=== PATIENT | female | born 1965 | race Caucasian/White ===

== ENCOUNTER → 2017-07-06 | Outpatient (CLI) | payer BC | END | disposition home or self-care (01) | LOC: YCFC.O 07-05 15:04 | PROVIDERS: ATTEND Nurse Practitioner Family | DX: I10 Essential (primary) hypertension (principal); Z13.220 Encounter for screening for lipoid disorders ==

== ENCOUNTER 2017-09-27 14:52 | Emergency (ER) | payer BC ==
--- NOTE | 2017-09-27 15:50 | ED.PDOC ---
History of Present Illness - General Chief Complaint: Lower Extremity Injury Stated Complaint: right foot/toe pain Time Seen by Provider: 09/27/17 15:16 Source: patient Exam Limitations: no limitations - History of Present Illness Initial Comments: R 3RD (MIDDLE) TOE PAIN X 4 D. 6 D AGO, PT DROPPED TV ONTO R FOOT. NO SEVERE PAIN AT THE TIME. PAIN ENSUED 2 D LATER. WORSE TODAY. TODAY, SHE IS UNABLE TO BEAR WT ON IT D/T PAIN. H/O GOUT BL ANKLES AND R GREAT TOE. Pain - Lower Extremity: severe: Right Foot Method of Injury: direct blow Improving Factors: immobilization Worsening Factors: movement Allergies/Adverse Reactions: Allergies Cephalexin [From Keflex] Allergy (Verified 09/27/17 15:23) Erythromycin [From E-Mycin] Allergy (Verified 09/27/17 15:23) Latex Allergy (Verified 09/27/17 15:23) Paroxetine [From Paxil] Allergy (Verified 09/27/17 15:23) Penicillin G Allergy (Verified 09/27/17 15:23) Home Medications: Ambulatory Orders Methylprednisolone [Medrol Dose Sai] 4 mg PO DAILY #1 tab 09/27/17 Review of Systems - Review of Systems Constitutional: States: no symptoms reported EENTM: States: no symptoms reported Respiratory: States: no symptoms reported Cardiology: States: no symptoms reported Gastrointestinal/Abdominal: States: no symptoms reported Genitourinary: States: no symptoms reported Musculoskeletal: States: joint pain. Denies: muscle pain Skin: Denies: change in color, lesions, lumps Neurological: Denies: numbness, paresthesia, weakness Endocrine: States: no symptoms reported Hematologic/Lymphatic: States: no symptoms reported All other Systems: Reviewed and Negative Past Medical History (General) - Patient Medical History Hx Seizures: No Hx Stroke: Yes - states has had a mini stroke in past Hx Dementia: No Hx Asthma: No Hx of COPD: No Hx Cardiac Disorders: No Hx Congestive Heart Failure: No Hx Pacemaker: No Hx Hypertension: No Hx Thyroid Disease: No Hx Diabetes: No Hx Gastroesophageal Reflux: Yes Hx Renal Disease: No Hx Cancer: No Hx of HIV: No Hx Hepatitis C: No Hx MRSA: No Surgical History: appendectomy, tonsillectomy - Vaccination History Hx Tetanus, Diphtheria Vaccination: No Hx Influenza Vaccination: No Hx Pneumococcal Vaccination: No Immunizations Up to Date: No - Social History Hx Tobacco Use: Yes Hx Chewing Tobacco Use: No Hx Alcohol Use: No Hx Substance Use: No Hx Substance Use Treatment: No Hx Depression: No Feels Threatened In Home Enviroment: No Feels Threatened In a Relationship: No Hx Physical Abuse: No Hx Emotional Abuse: No Hx Suspected Abuse: No - Activities of Daily Living Hospice Agency (if applicable):: None - Female History Patient is a Female of Child Bearing Age (10 -59 yrs old): Yes Patient : No Family Medical History - Family History Mother Family History: Unknown Physical Exam - Physical Exam General Appearance: Alert, Well Groomed, Other Eyes, Ears, Nose, Throat: PERRL/EOMI, normal ENT inspection Neck: full range of motion, supple Cardiovascular/Respiratory: regular rate, rhythm, no M/R/G, no respiratory distress Gastrointestinal/Abdominal: non-tender, no organomegaly Back: normal inspection Thigh/Hip: normal inspection, no evidence of injury Leg: normal inspection, no evidence of injury Knee: normal inspection, no evidence of injury Ankle: normal inspection, non-tender, no evidence of injury, normal ROM Foot: other - R MIDDLE (3RD) TOE EXQUISITELY TTP. PAINFUL MVMT. FOOT NTTP, HOWEVER PLANTAR SURFACE OF MTP JOINT AND PHALANX TTP. NO ERYTHEMA, NOT WARM/HOT , TOE NON-EDEMATOUS. Neuro/Tendon: normal sensation, normal motor functions, responds to pain, no evidence tendon injury Mental Status: alert, oriented x 3 Skin: normal color, warm/dry Progress - Results/Orders Results/Orders: NOTE: UR CX WAS ORDERED IN ERROR AND CANCELED. PT HAS TRAMADOL RX FROM HER REG DR WITH HER FOR VARIOUS ARTHRITIS PAIN. SHE DECLINES THE OFFER FOR ANY ADDITIONAL PAIN MED. XRAY NEG FOR TOE FRX. PAIN IS TOO SEVERE FOR SPRAIN/STRAIN, SO I AM TREATING LIKELY GOUT FLARE W/ HER HX OF GOUT - STEROIDS. F/U W/ PCP. - EKG/XRAY/CT CT Ordered: No CT Interpretation Call Back: No Departure - Departure Clinical Impression: Toe pain, right, Gout attack Disposition: Discharge to Home or Self Care Condition: Fair Departure Forms: ED Discharge - Pt. Copy, Patient Portal Self Enrollment Instructions: DI for Gout Diet: resume usual diet Activity: increase activity as tolerated Referrals: Donna Olson NP [Primary Care Provider] - 1-2 Weeks Prescriptions: Methylprednisolone [Medrol Dose Sai] 4 mg PO DAILY #1 tab Home Medications: Ambulatory Orders Methylprednisolone [Medrol Dose Sai] 4 mg PO DAILY #1 tab 09/27/17 Additional Instructions: Try to increase your intake of cherries, as evidence shows it helps to decrease gout attacks. Please see your regular doctor if it is not improving by 6 days, or return to the ER sooner if anything changes.
--- NOTE | 2017-09-27 16:21 | RAD ---
EXAM DESCRIPTION: Toes,Right CLINICAL HISTORY: 52 years, Female, R MIDDLE TOE PAIN; UNABLE TO BEAR WEIGHT. COMPARISON: None. FINDINGS: Toes of the right foot appear unremarkable. Joint space is unremarkable. IMPRESSION: Unremarkable toes of the right Electronically signed by: Ovi Beard MD 09/27/2017 4:19 PM [facility]
[2017-09-27] MEDS ORDERED: methylPREDNISolone ACETATE 80 MG/ML VIAL IM ONE (17:10)
[2017-09-27 17:35] VITALS: BP 145/94; TEMP 97.4; O2SAT 97
== END 2017-09-27 17:42 | disposition home or self-care (01) ==
LOC: ER 14:52
DX: M10.9 Gout, unspecified (principal); Z87.891 Personal history of nicotine dependence; Z86.73 Personal history of transient ischemic attack (TIA), and cerebral infarction without residual deficits; Z88.0 Allergy status to penicillin; Z91.040 Latex allergy status
CPT/HCPCS: 73660; J1030

== ENCOUNTER → 2017-10-02 | Outpatient (CLI) | payer BC ==
--- NOTE | 2017-10-03 14:02 | RAD ---
Two-view right foot. Indication: PN IN RIGHT FOOT Comparison: None. Impression: No acute fracture or malalignment. Prominent calcaneal spurring Achilles insertion plantar fascia origin. Tiny os navicular bone. No advanced osteoarthritis. Electronically signed by: Ollie Sewell MD 10/03/2017 2:01 PM [facility]
== END ==
LOC: YCFC.O 13:04
PROVIDERS: ATTEND Nurse Practitioner Family
DX: M79.671 Pain in right foot (principal); M77.31 Calcaneal spur, right foot

== ENCOUNTER → 2018-04-05 | Outpatient (CLI) | payer BC ==
--- NOTE | 2018-04-05 12:25 | RAD ---
EXAM DESCRIPTION: Foot,Left 3 Views CLINICAL HISTORY: CLOSED FX METATARSAL MULT-S92.325D COMPARISON: Radiographs of left foot dated 03/16/2018. TECHNIQUE: AP, LATERAL, AND OBLIQUE FINDINGS: The visualized bones appear osteopenic. No significant interval healing of the fracture of the fourth metatarsal is noted. Persistent visualization of the fracture line through the base of the second metatarsal. Plantar and posterior calcaneal spurs are identified. The soft tissues appear grossly unremarkable. IMPRESSION: Unchanged appearance of the fractures of the second and fourth metatarsals. Electronically signed by: Maria Boyd MD 04/05/2018 12:24 PM CDT
== END ==
LOC: RAD 08:56
PROVIDERS: ATTEND Orthopaedic Surgery
DX: S92.325D Nondisplaced fracture of second metatarsal bone, left foot, subsequent encounter for fracture with routine healing (principal); S92.335D Nondisplaced fracture of third metatarsal bone, left foot, subsequent encounter for fracture with routine healing

== ENCOUNTER → 2018-04-20 | Outpatient (CLI) | payer BC ==
--- NOTE | 2018-04-20 09:05 | RAD ---
EXAM DESCRIPTION: Foot,Left 3 Views CLINICAL HISTORY: 52 years, Female, CLOSED FRACTURE OF METATARSAL, MULTIPLE COMPARISON: Previous study April 05, 2018 TECHNIQUE: AP, lateral, and oblique views of the left foot FINDINGS: Callus formation is seen around healing fractures of the proximal second metatarsal and distal fourth metatarsal. Deformity of the proximal phalanx of the third toe suggests old healed trauma. Metatarsus prima varus is noted with hallux valgus. Degenerative narrowing of the joints of the toes. Lateral view shows intact talus and calcaneus. Prominent dorsal and plantar calcaneal enthesophytes. Compared to previous study, no changes evident. IMPRESSION: Healing fractures of left second and fourth metatarsals. Electronically signed by: Honorio Merrill MD 04/20/2018 9:04 AM CDT
== END ==
LOC: RAD 08:36
PROVIDERS: ATTEND Orthopaedic Surgery
DX: S92.325D Nondisplaced fracture of second metatarsal bone, left foot, subsequent encounter for fracture with routine healing (principal); S92.335D Nondisplaced fracture of third metatarsal bone, left foot, subsequent encounter for fracture with routine healing; S92.345D Nondisplaced fracture of fourth metatarsal bone, left foot, subsequent encounter for fracture with routine healing

== ENCOUNTER → 2018-06-15 | Outpatient (CLI) | payer BC ==
--- NOTE | 2018-06-15 08:54 | RAD ---
EXAM DESCRIPTION: Foot,Left 3 Views CLINICAL HISTORY: FOOT PAIN COMPARISON: April 20, 2018 FINDINGS: 3 views of the left foot again demonstrates fracture of the mid to distal fourth metatarsal with bridging callus formation and healing. There is a somewhat comminuted fracture seen at the proximal second metatarsal with periosteal reaction similar to previous exam. There remains lucency along the fracture line margin without definite interval increased callus formation or bridging bony union. Mild hallux valgus deformity of the first metatarsophalangeal joint is seen. Mild bunion deformity of the first metatarsal head. Flexion of the second and third digits is seen. Degenerative narrowing of the joints of the toes. Prominent dorsal and plantar calcaneal enthesophytes are seen. IMPRESSION: Mostly healed fracture of the left fourth metatarsal is seen. Incompletely healed fracture of the proximal left second metatarsal is noted. There is lack of progressive callus formation between the fracture fragments. Electronically signed by: Michael Hatfield MD 06/15/2018 8:53 AM CDT
== END ==
LOC: RAD 07:46
PROVIDERS: ATTEND Orthopaedic Surgery
DX: S92.345D Nondisplaced fracture of fourth metatarsal bone, left foot, subsequent encounter for fracture with routine healing (principal); S92.325D Nondisplaced fracture of second metatarsal bone, left foot, subsequent encounter for fracture with routine healing

== ENCOUNTER → 2018-07-16 | Outpatient (CLI) | payer BC ==
--- NOTE | 2018-07-16 11:55 | RAD ---
EXAM DESCRIPTION: Foot,Left 3 Views CLINICAL HISTORY: 53 years, Female, LEFT FOOT PAIN COMPARISON: Previous left foot x-rays June 15, 2018 TECHNIQUE: AP, lateral, and oblique views of the left foot FINDINGS: Partially healed proximal left second metatarsal fracture is stable in alignment compared to previous study with dorsal offset of the distal fracture fragment is visible on the lateral view measuring 4 mm. No change since previous exam. Old healed fracture of the distal left fourth metatarsal is seen. Metatarsals primus varus is present with hallux valgus. IMPRESSION: Healing fracture of the proximal left second metatarsal. Healed fracture of the distal left fourth metatarsal. Electronically signed by: Honorio Merrill MD 07/16/2018 11:53 AM CDT
--- NOTE | 2018-07-16 13:21 | RAD ---
EXAM DESCRIPTION: Foot,Right 3 Views CLINICAL HISTORY: 53 years, Female, PAIN COMPARISON: Previous x-rays of the right foot October 02, 2017 TECHNIQUE: AP, lateral, and oblique views of the right foot FINDINGS: Transverse fracture proximal phalanx of the right third toe is noted with callus formation suggesting partial healing. Mild degenerative narrowing of the joints of the other toes. On the oblique view, lucency remains and this could be a developing nonunion. Clinical correlation recommended. Lateral view shows prominent dorsal and plantar calcaneal spurring. There is no other bone, joint, or soft tissue abnormality observed. There is no radiopaque foreign body. IMPRESSION: Fractured proximal phalanx of the right third toe. Electronically signed by: Honorio Merrill MD 07/16/2018 1:20 PM CDT
== END ==
LOC: RAD 07:47
PROVIDERS: ATTEND Orthopaedic Surgery
DX: S92.911A Unspecified fracture of right toe(s), initial encounter for closed fracture (principal); S92.325A Nondisplaced fracture of second metatarsal bone, left foot, initial encounter for closed fracture; S92.345A Nondisplaced fracture of fourth metatarsal bone, left foot, initial encounter for closed fracture

== ENCOUNTER → 2018-08-13 | Outpatient (CLI) | payer BC ==
--- NOTE | 2018-08-13 09:20 | RAD ---
EXAM DESCRIPTION: Foot,Left 3 Views CLINICAL HISTORY: 53 years Female, METATARSAL FX COMPARISON: July 16, 2018 FINDINGS: There is an old healed fourth metatarsal fracture. An old nondisplaced fracture involving the base of the second metatarsal appears non or partially united, not significantly changed from the patient's previous exam. No acute fracture or malalignment is identified. Degenerative changes involve the first and third MTP joints including mild hallux valgus alignment. Moderate-sized calcaneal enthesophytes are present at the insertion sites of the plantar fascia and Achilles tendon. IMPRESSION: Old non or partially united fracture involving the base of the second metatarsal with an old healed fourth metatarsal fracture. Degenerative changes including calcaneal spurring. Electronically signed by: Raymond Hutchins MD 08/13/2018 9:19 AM CDT
== END ==
LOC: RAD 07:47
PROVIDERS: ATTEND Orthopaedic Surgery
DX: S92.325D Nondisplaced fracture of second metatarsal bone, left foot, subsequent encounter for fracture with routine healing (principal); S92.335D Nondisplaced fracture of third metatarsal bone, left foot, subsequent encounter for fracture with routine healing; S92.345D Nondisplaced fracture of fourth metatarsal bone, left foot, subsequent encounter for fracture with routine healing

== ENCOUNTER → 2018-09-27 | Outpatient (CLI) | payer BC ==
--- NOTE | 2018-09-28 07:38 | RAD ---
EXAM DESCRIPTION: Foot,Left 3 Views CLINICAL HISTORY: CLOSED FRACTURE METATARSAL , MULTIPLE COMPARISON: August 13, 2018. FINDINGS: 3 views of the left foot. Healing and/or healed fracture of the proximal diaphysis second metatarsal is present. The fracture line remains somewhat visible. However, the callus formation is bridging and stable in appearance. Old fracture deformity of the distal diaphysis fourth metatarsal. Stable advanced degenerative change of the third metatarsophalangeal joint. Stable hallux valgus formation. Stable posterior and plantar calcaneal enthesophyte formations without periosteal reaction. Bone mineralization is within normal limits. No erosions. IMPRESSION: Stable. Electronically signed by: Avery Kim MD 09/28/2018 7:36 AM [facility]
== END ==
LOC: RAD 07:59
PROVIDERS: ATTEND Orthopaedic Surgery
DX: S92.325D Nondisplaced fracture of second metatarsal bone, left foot, subsequent encounter for fracture with routine healing (principal); S92.335D Nondisplaced fracture of third metatarsal bone, left foot, subsequent encounter for fracture with routine healing; S92.345D Nondisplaced fracture of fourth metatarsal bone, left foot, subsequent encounter for fracture with routine healing

== ENCOUNTER → 2018-09-28 | Outpatient (CLI) | payer BC | LOC: LAB.O 07:33 | PROVIDERS: ATTEND Nurse Practitioner Family | DX: I10 Essential (primary) hypertension (principal); E78.2 Mixed hyperlipidemia ==

== ENCOUNTER → 2020-08-11 | Outpatient (CLI) | payer BC | LOC: YCFC.O 15:24 | PROVIDERS: ATTEND Family Medicine | DX: Z20.828 Contact with and (suspected) exposure to other viral communicable diseases (principal) ==